=== PATIENT | female | born 1940 | race Caucasian/White ===

== ENCOUNTER 2020-12-01 07:04 | Emergency (ER) | payer OTHER, MEDICARE ==
[~2020-12-01] VITALS: Ht 162.6 cm; Wt 76.2 kg
[~2020-12-01 07:04] MED LIST: AMLODIPINE PO; BENADRYL25 MG PO; CELEXA 10 MG TA10 M1 PO; ENABLEX15 MG; PREDNISONE 20 M20 MG PO
[2020-12-01 08:02] LABS: BASOPHILS 0.7 % (0.0-2.0); HEMATOCRIT 38.1 % (37.0-47.0); LYMPHOCYTES 16.2 % (24.0-44.0); MCH 31.1 pg (26.0-34.0); MCV 91.5 fL (80.0-100.0); MONOCYTES 9.1 % (1.0-8.0); PLATELET COUNT 262 thou/uL (150-400); RBC 4.17 mil/uL (4.20-5.00); RDW 12.9 % (10.5-14.5); WBC 5.6 thou/uL (4.0-11.0)
[2020-12-01 08:12] LABS: ANION GAP 9 mmol/L (7-16); BUN 15 mg/dL (7-18); CALCIUM 8.7 mg/dL (8.5-10.1); CHLORIDE 106 mmol/L (98-107); CO2 27 mmol/L (21-32); CREATININE 0.9 mg/dL (0.6-1.0); GLUCOSE 179 mg/dL (74-106); POTASSIUM 3.8 mmol/L (3.5-5.1); SODIUM 142 mmol/L (136-145)
[2020-12-01 08:21] LABS: ALBUMIN 3.5 g/dL (3.4-5.0); DIRECT BILIRUBIN 0.1 mg/dL (<0.1-0.2); SGOT 17 U/L (15-37); SGPT 24 U/L (14-59); TOTAL BILIRUBIN 0.5 mg/dL (0.2-1.0); TOTAL PROTEIN 6.5 g/dL (6.4-8.2); TROPONIN-I <0.06 ng/mL (<0.06)
[2020-12-01 09:08] VITALS: BP 144/72
[2020-12-01 09:31] LABS: URINE BILIRUBIN NEGATIVE (Negative); URINE BLOOD NEGATIVE (Negative); URINE CLARITY CLEAR; URINE COLOR YELLOW; URINE GLUCOSE-RANDOM* TRACE (Negative); URINE KETONES NEGATIVE (Negative); URINE LEUKOCYTES-REFLEX NEGATIVE (Negative); URINE NITRITE-REFLEX NEGATIVE (Negative); URINE PROTEIN (DIPSTICK) NEGATIVE (Negative); URINE UROBILINOGEN 0.2 E.U./dl (0.2-1.0)
[2020-12-01] MEDS ORDERED: ZOFRAN ODT4 MG PO (10:44)
[2020-12-01] MEDS ORDERED: MECLIZINE HCL25 MG PO (10:44)
--- NOTE | 2020-12-01 11:41 | EKG ---
[address] [place] [address] ELECTROCARDIOGRAM REPORT Name: VITALIYANGUS A Room #: DEP [facility]#: [id number] Admission: 12/01/20 Attend Phys: Discharge: 12/01/20 Date of : 40 Report #: [id number] [facility] ED Test Date: 2020-12-01 Test Time: 07:20:22 Pat Name: ANGUS BURKS Department: Room: Gender: F Civil Design Technician: JARAD : 1940 Requested By: Sharona Gray Order Number: [id number] MD: Wan Contreras Measurements Intervals [place] Rate: 58 P: 52 AR: 248 QRS: 31 QRSD: 96 T: 107 QT: 461 QTc: 453 Interpretive Statements Sinus rhythm Prolonged AR interval Nonspecific T abnormalities, lateral leads Compared to ECG 07/17/2015 09:31:19 First degree AV block now present T-wave abnormality now present Electronically Signed On 12-01-2020 11:41:18 CDT by Wan Contreras [email or web address] <ELECTRONICALLY SIGNED> By: Wan Contreras MD, [facility] 12/01/20 1141 9 9 Wan Contreras MD, [facility] /EPI
== END 2020-12-01 10:59 | disposition home or self-care (01) ==
LOC: ER 07:04
PROVIDERS: Emergency Medicine
DX: R42 Dizziness and giddiness (principal); R19.7 Diarrhea, unspecified; R07.89 Other chest pain